=== PATIENT | female | born 1985 | race African-American/Black ===

== ENCOUNTER 2022-09-15 19:37 | Emergency (ER) | payer SELFPAY ==
[~2022-09-15] VITALS: Ht 170.2 cm; Wt 65.8 kg
[2022-09-15 19:50] VITALS: BP 103/95; PULSE 89; RESP 18; TEMP 97.9; O2SAT 98
== END 2022-09-15 20:48 | disposition left against medical advice (07) ==
LOC: ER 19:37
DX: Z53.21 Procedure and treatment not carried out due to patient leaving prior to being seen by health care provider (principal)
CPT/HCPCS: 99281; 99283